=== PATIENT | male | born 1995 | race American Indian/Alaskan Native ===

== ENCOUNTER 2022-06-05 02:34 | Emergency (ER) | payer SELFPAY ==
[2022-06-05] MEDS ORDERED: LIDOCAINE (2%) 20 MG/1 ML VIAL 20 ML MDV INFILTRATI ONE (03:02)
--- NOTE | 2022-06-05 03:14 | Cat Scan Report ---
CT head without contrast INDICATION : head trauma. TECHNIQUE: Axial imaging performed from the skull apex through the skull base without the use of con trast. All CT scans at this location are performed using CT dose reduction for ALARA by means of aut omated exposure control. COMPARISON: None FINDINGS: Parenchyma: No mass, stroke or hemorrhage. Ventricles: Ventricles are normal in size and appear symmetric. Soft tissues: Soft tissue injury left frontal region. No radiopaque foreign body. Bones: No acute osseous abnormality. Sinuses: Thickening/fluid left sphenoid sinus. IMPRESSION: Thickening/fluid left sphenoid sinus. Signer Name: Bran Larios MD Signed: 06/05/2022 3:09 AM Workstation Name: [id number]
[2022-06-05] MEDS ORDERED: LET TOPICAL (LIDOCAINE/EPINEPHRINE/TETRACAINE) 3 ML TP STA (03:15)
[2022-06-05] MEDS ORDERED: HYDROcodone/ACETAMINOPHEN 5-325 MG TAB PO STA (03:15)
--- NOTE | 2022-06-05 04:57 | Emergency Department Report ---
ED Head Trauma HPI - General Chief complaint: Wound/Laceration Stated complaint: HEAD LACERATION/ALTERCATION Time Seen by Provider: 06/05/22 03:09 Source: patient, family Mode of arrival: Wheelchair Limitations: No Limitations - Related Data Previous Rx's Medication Instructions Recorded Last Taken Type Famotidine [Pepcid] 10 mg PO BID #28 tablet 02/26/14 Unknown Rx Omeprazole [Prilosec] 40 mg PO QAM #14 capsule. 02/26/14 Unknown Rx Sulfamethoxazole/Trimethoprim 1 each PO BID #14 tablet 02/26/14 Unknown Rx [Bactrim Ds] Allergies/Adverse reactions: Allergies Allergy/AdvReac Type Severity Reaction Status Date / Time No Known Allergies Allergy Verified 02/26/14 00:27 ED Review of Systems ROS: Stated complaint: HEAD LACERATION/ALTERCATION Other details as noted in HPI ED Past Medical Hx - Past Medical History Previous Medical History?: No - Surgical History Past Surgical History?: No - Social History Smoking Status: Current Every Day Smoker Substance Use Type: Alcohol - Medications Home Medications: Home Medications Medication Instructions Recorded Confirmed Last Taken Type Famotidine [Pepcid] 10 mg PO BID #28 tablet 02/26/14 Unknown Rx Omeprazole [Prilosec] 40 mg PO QAM #14 capsule. 02/26/14 Unknown Rx Sulfamethoxazole/Trimethoprim 1 each PO BID #14 tablet 02/26/14 Unknown Rx [Bactrim Ds] ED Physical Exam - General Limitations: No Limitations ED Course Vital Signs 06/05/22 02:40 Temperature 97.5 F L Pulse Rate 96 H Respiratory 16 Rate Blood Pressure 123/76 O2 Sat by Pulse 100 Oximetry - Radiology Data Radiology results: report reviewed [address] [address] Cat Scan Report Signed Patient: VINOD AMBRIZ MR#: [id number] : 1995 Acct:[id number] Age/Sex: 26 / M ADM Date: 06/05/22 Loc: ED Attending Dr: Ordering Physician: XI PINA MD Date of Service: 06/05/22 Procedure(s): CT head/brain wo con Accession Number(s): [id number] cc: XI PINA MD CT head without contrast INDICATION : head trauma. TECHNIQUE: Axial imaging performed from the skull apex through the skull base without the use of contrast. All CT scans at this location are performed using CT dose reduction for ALARA by means of automated exposure control. COMPARISON: None FINDINGS: Parenchyma: No mass, stroke or hemorrhage. Ventricles: Ventricles are normal in size and appear symmetric. Soft tissues: Soft tissue injury left frontal region. No radiopaque foreign body. Bones: No acute osseous abnormality. Sinuses: Thickening/fluid left sphenoid sinus. IMPRESSION: Thickening/fluid left sphenoid sinus. Signer Name: Bran Larios MD Signed: 06/05/2022 3:09 AM Workstation Name: [id number] Transcribed By: ES Dictated By: Bran Larios MD Electronically Authenticated By: Bran Larios MD Signed Date/Time: 06/05/22308 DD/ 4 TD/TT: Critical care attestation.: If time is entered above; I have spent that time in minutes in the direct care of this critically ill patient, excluding procedure time. ED Disposition Clinical Impression: Head injury due to trauma, Laceration of forehead, complicated Disposition: 01 HOME / SELF CARE / HOMELESS Is pt being admited?: No Does the pt Need Aspirin: No Condition: Stable Instructions: Laceration Care, Adult, How to Use Cold Therapy, [id number], Laceration Care, Adult, [id number], How to Use Cold Therapy, Sutured Wound Care, [id number]
[2022-06-05 06:52] VITALS: BP 109/60
== END 2022-06-05 06:32 | disposition home or self-care (01) ==
LOC: ED 02:34
DX: S01.81XA Laceration without foreign body of other part of head, initial encounter (principal); S09.90XA Unspecified injury of head, initial encounter; X58.XXXA Exposure to other specified factors, initial encounter; Y93.89 Activity, other specified; Y92.89 Other specified places as the place of occurrence of the external cause; Y99.8 Other external cause status
CPT/HCPCS: 70450; 99284; J3490

== ENCOUNTER 2022-06-09 20:11 | Emergency (ER) | payer SELFPAY ==
[2022-06-10] MEDS ORDERED: FAMOTIDINE 20 MG TAB PO ONE (08:32)
[2022-06-10] MEDS ORDERED: diphenhydrAMINE 25 MG/10 ML ORAL LIQUID PO ONE (08:32)
[2022-06-10] MEDS ORDERED: predniSONE 20 MG TAB PO NR (09:00)
--- NOTE | 2022-06-10 09:29 | Emergency Department Report ---
HPI - General Chief Complaint: Allergic Reaction PUI?: No Time Seen by Provider: 06/10/22 08:31 - HPI HPI: Mr. Qureshi is a 26-year-old male that comes to the emergency room complaining of a sensation of fullness in his throat after taking 2 days of Keflex. He was given Keflex here after sustaining a head injury requiring sutures to his head. He denies any prior history to penicillin or any antibiotics. His ABCs are intact. He has no hypoxia. No hypotension or tachycardia. He is controlling his secretions. He has no hives. ED Past Medical Hx - Past Medical History Previous Medical History?: No - Surgical History Past Surgical History?: No - Family History Family history: no significant - Social History Smoking Status: Current Every Day Smoker Substance Use Type: Alcohol - Medications Home Medications: Home Medications Medication Instructions Recorded Confirmed Last Taken Type Acetaminophen/Codeine [Tylenol #3] 1 tab PO Q6H PRN #15 tab 06/05/22 Unknown Rx Chlorhexidine Gluconate [Hibiclens] 10 ml TP BID #240 liquid 06/05/22 Unknown Rx Cetirizine HCl [ZyrTEC] 10 mg PO DAILY #30 capsule 06/10/22 Unknown Rx diphenhydrAMINE [Benadryl CAP] 25 mg PO Q8HR PRN #20 capsule 06/10/22 Unknown Rx predniSONE [Deltasone] 20 mg PO DAILY #5 tablet 06/10/22 Unknown Rx ED Review of Systems ROS: Stated complaint: ALLERGIC REACTION TO MEDS GIVEN/PREVIOUS VISIT Other details as noted in HPI Comment: All other systems reviewed and negative Constitutional: denies: chills, fever Eyes: denies: eye pain, eye discharge, vision change ENT: denies: ear pain, throat pain Respiratory: denies: cough, shortness of breath, wheezing Cardiovascular: denies: chest pain, palpitations Endocrine: no symptoms reported Gastrointestinal: denies: abdominal pain, nausea, diarrhea Genitourinary: denies: urgency, dysuria Musculoskeletal: denies: back pain, joint swelling, arthralgia Skin: denies: rash, lesions Neurological: denies: headache, weakness, paresthesias Psychiatric: denies: anxiety, depression Hematological/Lymphatic: denies: easy bleeding, easy bruising Physical Exam - Physical Exam Vital Signs: Vital Signs 06/09/22 21:02 Temperature 98.6 F Pulse Rate 76 Respiratory 18 Rate Blood Pressure 122/69 O2 Sat by Pulse 95 Oximetry General: Alert and oriented x4. S1-S2.Lungs clear to auscultation. Abdomen soft nontender. No CVA tenderness. Laceration to the head is clean dry and intact. Patient educated on wound care because he had globs of Neosporin on his head. ED Course Vital Signs 06/09/22 21:02 Temperature 98.6 F Pulse Rate 76 Respiratory 18 Rate Blood Pressure 122/69 O2 Sat by Pulse 95 Oximetry ED Medical Decision Making - Medical Decision Making Vital Signs 06/09/22 06/10/22 21:02 09:25 Temperature 98.6 F 97.8 F Pulse Rate 76 82 Respiratory 18 16 Rate Blood Pressure 122/69 Blood Pressure 118/74 [Left] O2 Sat by Pulse 95 96 Oximetry Patient medicated with Benadryl, Pepcid and prednisone in the ER. Observation he has had no hypoxia, tachycardia or hypotension. He is ambulatory without shortness of breath. I have advised him to stop his Keflex. His wound has no signs and symptoms of infection. Patient taking p.o. and in no acute distress on discharge exam. Patient discharged home with discharge plan of care including diet, activity, medications and follow-up. He verbalizes understanding of plan of care - Differential Diagnosis Allergic reaction Critical care attestation.: If time is entered above; I have spent that time in minutes in the direct care of this critically ill patient, excluding procedure time. ED Disposition Clinical Impression: Allergic reaction Qualifiers: Encounter type: initial encounter Qualified Code(s): T78.40XA - Allergy, unspecified, initial encounter Disposition: 01 HOME / SELF CARE / HOMELESS Is pt being admited?: No Does the pt Need Aspirin: No Condition: Stable Additional Instructions: REPORT KEFLEX AN ALLERGY DO NOT TAKE ANY MORE MEDS ORDERED NO MORE NEOSPORIN ON HEAD DIET AND ACTIVITY TOLERATED Prescriptions: diphenhydrAMINE [Benadryl CAP] 25 mg PO Q8HR PRN #20 capsule PRN Reason: Itching predniSONE [Deltasone] 20 mg PO DAILY #5 tablet Cetirizine HCl [ZyrTEC] 10 mg PO DAILY #30 capsule Referrals: GLO BENITEZ MD [Primary Care Provider] - 3-5 Days Forms: Accompanied Note, Work/School Release Form(ED) Time of Disposition: 09:29
[2022-06-10 09:53] VITALS: BP 118/74
== END 2022-06-10 09:53 | disposition home or self-care (01) ==
LOC: ED 20:11
DX: T78.40XA Allergy, unspecified, initial encounter (principal); X58.XXXA Exposure to other specified factors, initial encounter
CPT/HCPCS: 99282; Q0163